=== PATIENT | female | born 1980 | race Caucasian/White ===

== ENCOUNTER 2016-11-24 14:36 | Emergency (ER) | payer SELFPAY ==
[2016-11-24] MEDS ORDERED: HYDROcodone/APAP 5/325MG 1 TAB TABLET PO ONE (15:15)
[2016-11-24] MEDS ORDERED: IBUPROFEN 800 MG TABLET. PO ONE (15:15)
[2016-11-24] MEDS ORDERED: HYDR-971 PO (15:17)
[2016-11-24] MEDS ORDERED: CEPH500T PO (15:17)
--- NOTE | 2016-11-24 15:17 | PHYS DOC ---
Adult General Chief Complaint Chief Complaint: BREAST PROBLEM HPI HPI Patient is a 36 year old female who presents with right breast pain, swelling and warmth that began this morning. Patient is also complaining of fever. Patient is breast-feeding. The child is 18 months. Patient denies any unusual drainage from the right breast. Review of Systems Review of Systems Constitutional: Fever Respiratory: Denies cough or shortness of breath [] Cardiovascular: No additional information not addressed in HPI [] GI: Denies abdominal pain, nausea, vomiting, bloody stools or diarrhea [] Musculoskeletal: Denies back pain or joint pain [] Integument: right breast pain, swelling Neurologic: Denies headache, focal weakness or sensory changes [] Current Medications Current Medications Current Medications Medications (Trade) Dose Ordered Sig/Lucia Start Time Stop Time Status Last Admin Dose Admin Acetaminophen/ Hydrocodone Bitart (Lortab 5/325) 2 tab 1X ONCE 11/24/16 15:15 11/24/16 15:16 UNV Ibuprofen (Motrin) 800 mg 1X ONCE 11/24/16 15:15 11/24/16 15:16 UNV Physical Exam Physical Exam Constitutional: Well developed, well nourished, no acute distress, non-toxic appearance. [] HENT: Normocephalic, atraumatic, bilateral external ears normal, oropharynx moist, no oral exudates, nose normal. [] Eyes: PERRLA, EOMI, conjunctiva normal, no discharge. [] Neck: Normal range of motion, no tenderness, supple, no stridor. [] Cardiovascular:Heart rate regular rhythm, no murmur [] Lungs & Thorax: Bilateral breath sounds clear to auscultation [] Abdomen: Bowel sounds normal, soft, no tenderness, no masses, no pulsatile masses. [] Skin: Warm, dry, and right breast has some redness around the areola. The breast feels engorged. There is warmth surrounding the entire right breast. No unusual discharge from the right nipple. Back: No tenderness, no CVA tenderness. [] Extremities: No tenderness, no cyanosis, no clubbing, ROM intact, no edema. [] Neurologic: Alert and oriented X 3, normal motor function, normal sensory function, no focal deficits noted. [] Psychologic: Affect normal, judgement normal, mood normal. [] EKG EKG [] Radiology/Procedures Radiology/Procedures [] Course & Med Decision Making Course & Med Decision Making Pertinent Labs and Imaging studies reviewed. (See chart for details) Patient has right breast mastitis from breast feeding and fever. Discharged with cephalexin. She was also given a prescription for [place] and Ibuprofen. Warm compresses recommended. Follow-up with her own [facility] [facility] in the next 7 days. Her vaccines are up-to-date. Dragon Disclaimer Dragon Disclaimer This electronic medical record was generated, in whole or in part, using a voice recognition dictation system. Departure Departure Impression: Primary Impression: Mastitis in female Additional Impression: Fever Disposition: HOME, SELF-CARE Condition: STABLE Referrals: GARETT COFFEY Jr, MD follow up with your OBGYN in 1-7 days Patient Instructions: , Mastitis, Fever, Adult Additional Instructions: You were seen with right breast mastitis and fever. Please complete your antibiotics. Take ibuprofen every 6 hours for fever and pain. Take hydrocodone as needed for pain. Do not take Tylenol on top of the hydrocodone they both have Tylenol. Apply warm compresses to breast. Scripts Cephalexin (CEPHALEXIN) 500 Mg Tablet 1 TAB PO QID, #40 TAB Prov: JOHN PAUL MENA APRN 11/24/16 Hydrocodone/Apap 5-325 (NORCO 5-325 TABLET) 1 Each Tablet 1-2 TAB PO Q4-6HRS, #20 TAB Prov: JOHN PAUL MENA APRN 11/24/16 Problem Qualifiers Additional Impression: Fever Fever type: unspecified Qualified Codes: R50.9 - Fever, unspecified JOHN PAUL MENA APRN Nov 24, 2016 15:17
[2016-11-24 15:21] VITALS: BP 153/102
== END 2016-11-24 15:34 | disposition home or self-care (01) ==
LOC: ER 14:36
DX: N61.0 Mastitis without abscess (principal); R50.9 Fever, unspecified
CPT/HCPCS: 99283

== ENCOUNTER 2017-06-10 14:26 | Emergency (ER) | payer OTHER | END 2017-06-10 16:35 | disposition left against medical advice (07) | LOC: ER 16:35 | DX: R10.9 Unspecified abdominal pain (principal); Z53.21 Procedure and treatment not carried out due to patient leaving prior to being seen by health care provider ==

== ENCOUNTER 2017-06-11 11:31 | Emergency (ER) | payer OTHER ==
[2017-06-11 11:55] LABS: URINE HCG POC HCG POSITIVE (Negative)
[2017-06-11 12:35] LABS: BILIRUBIN,URINE NEGATIVE (NEG); CLARITY,URINE CLEAR; COLOR,URINE YELLOW; GLUCOSE,URINE NEGATIVE (NEG); NITRITE,URINE NEGATIVE (NEG); PROTEIN,URINE NEGATIVE (NEG-TRACE); UROBILINOGEN,URINE 0.2 mg/dL (0.2 mg/dL)
[2017-06-11 12:40] LABS: BARBITURATES NEG (NEG); BENZODIAZEPINES NEG (NEG); CANNABINOIDS NEG (NEG); COCAINE NEG (NEG); METHADONE NEG (NEG); OPIATES NEG (NEG); PHENCYCLIDINE NEG (NEG)
[2017-06-11 12:41] LABS: AMPHETAMINE/METHAMPHETAMINE NEG (NEG); ETHANOL, URINE NEG (NEG)
[2017-06-11 12:44] LABS: ADD MAN DIFF? NO; BACTERIA,URINE FEW /HPF (0-FEW); RBC,URINE 0 /HPF (0-2); SQUAMOUS EPITHELIAL CELL,UR MOD /LPF; WBC,URINE 0 /HPF (0-4)
[2017-06-11 12:47] LABS: BASO % 0 % (0-3); EOS # 0.2 x10^3/uL (0.0-0.7); EOS % 2 % (0-3); HEMATOCRIT 37.6 % (36.0-47.0); HEMOGLOBIN 13.1 g/dL (12.0-15.5); LYMPH # 1.8 x10^3/uL (1.0-4.8); LYMPH % 17 % (24-48); MEAN CORPUSCULAR HEMOGLOBIN 30 pg (25-35); MEAN CORPUSCULAR HGB CONC 35 g/dL (31-37); MEAN CORPUSCULAR VOLUME 87 fL (79-100); MONO # 0.8 x10^3/uL (0.0-1.1); MONO % 7 % (0-9); NEUT # 7.8 x10^3uL (1.8-7.7); NEUT % 73 % (31-73); PLATELET COUNT 272 x10^3/uL (140-400); RED BLOOD COUNT 4.31 x10^6/uL (3.50-5.40); RED CELL DISTRIBUTION WIDTH 13.1 % (11.5-14.5); WHITE BLOOD COUNT 10.6 x10^3/uL (4.0-11.0)
[2017-06-11 12:55] LABS: ANION GAP 8 (6-14); BLOOD UREA NITROGEN 8 mg/dL (7-20); BUN/CREATININE RATIO 13 (6-20); CALCIUM 9.4 mg/dL (8.5-10.1); CARBON DIOXIDE 27 mmol/L (21-32); CHLORIDE 103 mmol/L (98-107); CREATININE 0.6 mg/dL (0.6-1.0); GFR 111.3; GLUCOSE 89 mg/dL (70-99); POTASSIUM 3.7 mmol/L (3.5-5.1); SODIUM 138 mmol/L (136-145)
[2017-06-11 13:01] LABS: ALBUMIN 2.8 g/dL (3.4-5.0); ALBUMIN/GLOBULIN RATIO 0.6 (1.0-1.7); ALK PHOS 50 U/L (46-116); ALT (SGPT) 21 U/L (14-59); AST (SGOT) 16 U/L (15-37); LIPASE 73 U/L (73-393); TOTAL BILIRUBIN 0.3 mg/dL (0.2-1.0); TOTAL PROTEIN 7.4 g/dL (6.4-8.2)
[2017-06-12 14:29] LABS: CHLAMYDIA PROBE Negative (Negative); GC PROBE Negative (Negative)
== END 2017-06-11 14:00 | disposition home or self-care (01) ==
LOC: ER 11:31
DX: O26.891 Other specified pregnancy related conditions, first trimester (principal); R10.32 Left lower quadrant pain; R11.0 Nausea; F17.200 Nicotine dependence, unspecified, uncomplicated
CPT/HCPCS: 36415; 76805; 80053; 80307; 81001; 81025; 83690; 84702; 85025; 87491; 87591; 99285-25; Q0111

== ENCOUNTER → 2017-07-02 | Outpatient (CLI) | payer OTHER | END | disposition home or self-care (01) | LOC: US 06:48 | DX: Z34.82 Encounter for supervision of other normal pregnancy, second trimester (principal); Z3A.20 20 weeks gestation of pregnancy | CPT/HCPCS: 76805 ==

== ENCOUNTER → 2017-09-04 | Outpatient (CLI) | payer OTHER ==
[2017-09-04 09:49] LABS: ADD MAN DIFF? NO
[2017-09-04 09:58] LABS: BASO % 0 % (0-3); EOS # 0.2 x10^3/uL (0.0-0.7); EOS % 2 % (0-3); HEMATOCRIT 38.1 % (36.0-47.0); HEMOGLOBIN 13.4 g/dL (12.0-15.5); LYMPH # 1.4 x10^3/uL (1.0-4.8); LYMPH % 12 % (24-48); MEAN CORPUSCULAR HEMOGLOBIN 31 pg (25-35); MEAN CORPUSCULAR HGB CONC 35 g/dL (31-37); MEAN CORPUSCULAR VOLUME 89 fL (79-100); MONO # 0.8 x10^3/uL (0.0-1.1); MONO % 7 % (0-9); NEUT % 79 % (31-73); PLATELET COUNT 262 x10^3/uL (140-400); RED BLOOD COUNT 4.29 x10^6/uL (3.50-5.40); RED CELL DISTRIBUTION WIDTH 13.1 % (11.5-14.5); WHITE BLOOD COUNT 11.5 x10^3/uL (4.0-11.0)
== END | disposition home or self-care (01) ==
LOC: LAB 08:19
DX: O09.93 Supervision of high risk pregnancy, unspecified, third trimester (principal); Z3A.29 29 weeks gestation of pregnancy
CPT/HCPCS: 36415; 82950; 85025

== ENCOUNTER 2017-10-29 16:44 | Observation (INO) | payer OTHER ==
[2017-06-11 11:46] VITALS: BP 152/84
[~2017-10-29 16:44] MED LIST: CEPH500T PO; HYDR-971 PO
[2017-10-29 17:33] LABS: BILIRUBIN,URINE NEGATIVE (NEG); CLARITY,URINE CLEAR; COLOR,URINE YELLOW; NITRITE,URINE NEGATIVE (NEG); PROTEIN,URINE NEGATIVE (NEG-TRACE); UROBILINOGEN,URINE 0.2 mg/dL (0.2 mg/dL)
[2017-10-29 17:41] LABS: BACTERIA,URINE FEW /HPF (0-FEW); RBC,URINE 0 /HPF (0-2); SQUAMOUS EPITHELIAL CELL,UR MANY /LPF; WBC,URINE 0 /HPF (0-4)
[2017-10-29 18:30] LABS: BASO % 0 % (0-3); EOS # 0.2 x10^3/uL (0.0-0.7); EOS % 1 % (0-3); HEMATOCRIT 36.8 % (36.0-47.0); LYMPH # 2.2 x10^3/uL (1.0-4.8); LYMPH % 18 % (24-48); MEAN CORPUSCULAR HEMOGLOBIN 31 pg (25-35); MEAN CORPUSCULAR HGB CONC 35 g/dL (31-37); MEAN CORPUSCULAR VOLUME 87 fL (79-100); MONO # 1.1 x10^3/uL (0.0-1.1); MONO % 9 % (0-9); NEUT # 8.5 x10^3uL (1.8-7.7); NEUT % 71 % (31-73); PLATELET COUNT 232 x10^3/uL (140-400); RED BLOOD COUNT 4.24 x10^6/uL (3.50-5.40); RED CELL DISTRIBUTION WIDTH 13.1 % (11.5-14.5)
[2017-10-29 18:49] LABS: ALBUMIN 2.4 g/dL (3.4-5.0); ALBUMIN/GLOBULIN RATIO 0.5 (1.0-1.7); CALCIUM 10.2 mg/dL (8.5-10.1); CREATININE 0.8 mg/dL (0.6-1.0); GFR 79.9; POTASSIUM 3.8 mmol/L (3.5-5.1); TOTAL BILIRUBIN 0.2 mg/dL (0.2-1.0); TOTAL PROTEIN 6.9 g/dL (6.4-8.2); URIC ACID 5.6 mg/dL (2.6-6.0)
== END 2017-10-29 20:03 | disposition home or self-care (01) ==
LOC: 3 SO LND 16:44
PROVIDERS: ADMIT Obstetrics & Gynecology; ATTEND Obstetrics & Gynecology
DX: O13.3 Gestational [pregnancy-induced] hypertension without significant proteinuria, third trimester (principal); Z3A.36 36 weeks gestation of pregnancy
CPT/HCPCS: 36415; 80053; 81001; 84550; 85025; G0378; G0379

== ENCOUNTER 2017-11-06 11:36 | Inpatient (IN) | payer OTHER ==
[~2017-11-06] VITALS: Ht 162.6 cm; Wt 107.5 kg
[2017-11-06] MEDS ORDERED: OXYTOCIN 30 UNIT/500 ML PREMIX 500 ML IV PRN ×2 (12:30)
[2017-11-06] MEDS ORDERED: LIDOCAINE 1% PF 30 ML VIAL. INJ PRN (12:30)
[2017-11-06] MEDS ORDERED: CALCIUM CARBONATE 500 MG TAB.CHEW PO PRN (12:30)
[2017-11-06] MEDS ORDERED: ACETAMINOPHEN 325 MG TABLET. PO PRN (12:30)
[2017-11-06] MEDS ORDERED: 0.9 % SODIUM CHLORIDE 10 ML DISP.SYRIN. IV PRN (12:30)
[2017-11-06] MEDS ORDERED: TERBUTALINE 1 MG/ML VIAL. SQ PRN (12:30)
[2017-11-06 12:39] VITALS: BP 157/105
[2017-11-06] MEDS: IV RINGERS,LACTATED 1000ML 1,000 ML IV SCH (13:07)
[2017-11-06 13:23] LABS: BASO % 0 % (0-3); EOS # 0.1 x10^3/uL (0.0-0.7); EOS % 1 % (0-3); HEMATOCRIT 38.6 % (36.0-47.0); HEMOGLOBIN 13.5 g/dL (12.0-15.5); LYMPH # 1.5 x10^3/uL (1.0-4.8); LYMPH % 14 % (24-48); MEAN CORPUSCULAR HEMOGLOBIN 31 pg (25-35); MEAN CORPUSCULAR HGB CONC 35 g/dL (31-37); MEAN CORPUSCULAR VOLUME 88 fL (79-100); MONO # 0.7 x10^3/uL (0.0-1.1); MONO % 6 % (0-9); NEUT # 8.3 x10^3uL (1.8-7.7); NEUT % 78 % (31-73); PLATELET COUNT 218 x10^3/uL (140-400); RED CELL DISTRIBUTION WIDTH 13.6 % (11.5-14.5); WHITE BLOOD COUNT 10.7 x10^3/uL (4.0-11.0)
[2017-11-06 13:32] LABS: ALBUMIN 2.4 g/dL (3.4-5.0); ALBUMIN/GLOBULIN RATIO 0.5 (1.0-1.7); CALCIUM 8.7 mg/dL (8.5-10.1); GFR 61.7; POTASSIUM 3.8 mmol/L (3.5-5.1); TOTAL BILIRUBIN 0.2 mg/dL (0.2-1.0); TOTAL PROTEIN 7.1 g/dL (6.4-8.2); URIC ACID 5.9 mg/dL (2.6-6.0)
[2017-11-06] MEDS ORDERED: MAGNESIUM SULFATE 4GM 100 ML IV ONE (13:45)
--- NOTE | 2017-11-06 13:50 | RAD ---
Obstetrical ultrasound-limited, 11/06/2017: HISTORY: Check position There is a single intrauterine fetus in a cephalic orientation. The measurements suggest a gestational age of 38-39 weeks and a sonographic EDC of 11/17/2017. This correlates well with the EDC of 11/21/2017 established on the previous ultrasound exam of 06/11/2017. Normal activity and heart motion are seen. The heart rate is 150 bpm. The weight was estimated at 7 pounds and 13 ounces +/- 18 ounces. A full survey was not attempted. The placenta lies posteriorly extending into the fundal region. The cervix was obscured by the overlying head. The TWIN measured 20.9 which is at the upper limits of normal. IMPRESSION: Single viable intrauterine fetus near term demonstrating satisfactory interval growth since previous studies as described above. The fetus is in a cephalic position. Electronically signed by: Luciano Donohue MD (11/06/2017 1:47 PM) [facility]
--- NOTE | 2017-11-06 13:57 | PDOC1 ---
OB - History Hx of Present Care: Good Care Ultrasounds: Normal mid trimester US Obstetrical Complications: Pre-eclampsia Medical Complications: Other (CHTN, Asthma) Past Family/Social History * Past Medical, Surgical, Family and Obstetric Histories reviewed from chart. Rubella: Immune RPR/VDRL: Negative GBS Status: Negative HBsAG: Negative OB - Chief Complaint & HPI Date of Admission: Date of Admission: Nov 06, 2017 at 11:36 Chief Complaint/History : 5 Para: 4 EGA: 37 Reason for admission: induction of labor (CHTN with superimposed preeclampsia) Indication for induction: medical complication (CHTN with superimposed preeclampsia) Admission Nurse Assessment Rev: Yes OB - Admission Exam Physical Exam HEENT: Normal Heart: Regular Rate Lungs: Clear Abdomen: Gravid, Non tender, Soft Extremities: Edema Reflexes: Normal Cervical Dilatation: 2cm Effacement: 50% Station: -3 Membranes: Intact Heart Rate: Normal Accelerations: Accelerations Present Decelerations: No decelerations Contractions on Admission: None Text A: 37 wks IUP CHTN with superimposed preeclampsia Asthma P: Admit for IOL with pitocin. Start magnesium sulfate. GARETT COFFEY Jr, MD Nov 06, 2017 13:57
[2017-11-06 14:17] LABS: BILIRUBIN,URINE NEGATIVE (NEG); CLARITY,URINE CLEAR; COLOR,URINE YELLOW; NITRITE,URINE NEGATIVE (NEG); PROTEIN,URINE NEGATIVE (NEG-TRACE); UROBILINOGEN,URINE 0.2 mg/dL (0.2 mg/dL)
[2017-11-06 14:22] LABS: RBC,URINE 0 /HPF (0-2); WBC,URINE RARE /HPF (0-4)
[2017-11-06 14:23] LABS: BACTERIA,URINE FEW /HPF (0-FEW); SQUAMOUS EPITHELIAL CELL,UR MANY /LPF
[2017-11-06] MEDS ORDERED: CITRIC ACID/SODIUM CITRATE 30 ML SOLUTION. PO ONE (14:45)
[2017-11-06] MEDS: MAGNESIUM SULFATE 20GM 500 ML IV SCH (14:56)
[2017-11-06] MEDS: BUDESONIDE 0.5 MG/2 ML NEBU. NEB SCH (21:00)
[2017-11-06] MEDS ORDERED: BUTORPHANOL 2 MG/ML VIAL. IV PRN (21:00)
[2017-11-07] MEDS ORDERED: BUTALB/APAP/CAFEIN 50/325/40MG TABLET. PO PRN (01:00)
[2017-11-07] MEDS: MAGNESIUM SULFATE 20GM 500 ML IV SCH ×2 (01:20→13:24)
[2017-11-07] MEDS: fentaNYL PF VIAL 100 MCG/2 ML VIAL IV PRN ×4 (03:08→08:03)
[2017-11-07] MEDS: IV RINGERS,LACTATED 1000ML 1,000 ML IV SCH ×3 (06:33→21:24)
[2017-11-07] MEDS ORDERED: ONDANSETRON PF 4 MG/2 ML VIAL. IV PRN (07:30)
[2017-11-07] MEDS ORDERED: ePHEDrine PF IN SALINE 50 MG/5 ML DISP.SYRIN IV PRN (07:30)
[2017-11-07] MEDS ORDERED: NALOXONE 0.4 MG/ML VIAL. IV PRN (07:30)
[2017-11-07] MEDS ORDERED: fentaNYL PF VIAL 100 MCG/2 ML VIAL EPI ONE (07:30)
[2017-11-07] MEDS ORDERED: L&D EPIDURAL SYRINGE 50 ML EP ONE (07:33)
[2017-11-07] MEDS ORDERED: ROPIVacaine 0.2% IN 0.9%NACL PF 40 MG/20 ML DISP.SYRIN. ONE ×2 (07:33→08:00)
[2017-11-07] MEDS ORDERED: LIDOCAINE 1% PF 2 ML VIAL. ONE ×2 (08:00→13:18)
[2017-11-07] MEDS: L&D EPIDURAL SYRINGE 50 ML EP PRN ×3 (08:01→13:47)
[2017-11-07] MEDS: BUDESONIDE 0.5 MG/2 ML NEBU. NEB SCH ×2 (09:00→21:00)
--- NOTE | 2017-11-07 15:07 | PDOC ---
VAGINAL DELIVERY DATE DATE: 11/07/17 TIME: 15:05 : 4 Para: 3 EDC: Nov 22, 2017 VAGINAL DELIVERY: VTX VACCUM ASSISTED: No PLACENTA: Spontaneous SEX: Female WEIGHT 6/12 Nuchal Cord: Yes, Times 2, Tight Amniotic Fluid: Clear PAIN: Epidural EPISIOTOMY: No EXTENSION: No EBL 300cc COMPLICATIONS None CONDITION Stable Signs of Intrauterine Infectio: None Shoulder Dystocia: No DIAGNOSIS YOJANA Rollins MD Nov 07, 2017 15:07
[2017-11-07] MEDS: IBUPROFEN 800 MG TABLET. PO PRN ×2 (17:04→23:25)
[2017-11-07 17:35] VITALS: BP 134/86
[2017-11-07] MEDS: NICOTINE 14MG PATCH. TD SCH (18:40)
[2017-11-07] MEDS ORDERED: PHENYLEPH/MINERAL OIL/PETROLAT RECTAL OINTMENT 28GM TUBE. RC PRN (18:45)
[2017-11-07] MEDS ORDERED: OXYTOCIN 30 UNIT/500 ML PREMIX 500 ML IV PRN (18:45)
[2017-11-07] MEDS ORDERED: HYDROCORTISONE 1% TOPICAL OINTMENT 30GM TUBE. TP PRN (18:45)
[2017-11-07] MEDS ORDERED: DOCUSATE SODIUM 100 MG CAPSULE. PO PRN (18:45)
[2017-11-07] MEDS ORDERED: diphenhydrAMINE HCL 25 MG CAPSULE PO PRN (18:45)
[2017-11-07] MEDS ORDERED: ACETAMINOPHEN 325 MG TABLET. PO PRN (18:45)
[2017-11-07] MEDS ORDERED: 0.9 % SODIUM CHLORIDE 10 ML DISP.SYRIN. IV PRN (18:45)
[2017-11-07] MEDS ORDERED: SIMETHICONE 80 MG TAB.CHEW PO PRN (18:45)
[2017-11-07] MEDS ORDERED: BENZOCAINE 20% TOPICAL AEROSOL SPRAY 57GM CAN. TP PRN (18:45)
[2017-11-07] MEDS ORDERED: MAGNESIUM HYDROXIDE 2,400 MG/30 ML ORAL.SUSP. PO PRN (18:45)
[2017-11-07] MEDS ORDERED: MAG HYDROX/ALUMINUM HYD/SIMETH 30 ML ORAL.SUSP PO PRN (18:45)
[2017-11-07] MEDS ORDERED: ZOLPIDEM 5 MG TABLET. PO PRN (18:45)
[2017-11-07 20:00] VITALS: BP 150/99
[2017-11-07 21:15] VITALS: BP 150/103
[2017-11-07] MEDS ORDERED: IBUPROFEN 800 MG TABLET. PO SCH (22:00)
[2017-11-07 23:33] VITALS: BP 131/85
[2017-11-08] VITALS (8 sets, daily range): BP systolic 125–150; BP diastolic 74–107
[2017-11-08 03:43] LABS: BASO % 0 % (0-3); EOS # 0.1 x10^3/uL (0.0-0.7); EOS % 0 % (0-3); HEMATOCRIT 35.3 % (36.0-47.0); HEMOGLOBIN 12.4 g/dL (12.0-15.5); LYMPH # 1.8 x10^3/uL (1.0-4.8); LYMPH % 13 % (24-48); MEAN CORPUSCULAR HEMOGLOBIN 31 pg (25-35); MEAN CORPUSCULAR HGB CONC 35 g/dL (31-37); MEAN CORPUSCULAR VOLUME 88 fL (79-100); MONO % 7 % (0-9); NEUT % 80 % (31-73); PLATELET COUNT 203 x10^3/uL (140-400); RED CELL DISTRIBUTION WIDTH 13.8 % (11.5-14.5); WHITE BLOOD COUNT 13.8 x10^3/uL (4.0-11.0)
[2017-11-08] MEDS: MAGNESIUM SULFATE 20GM 500 ML IV SCH (04:58)
[2017-11-08] MEDS: SENNOSIDES/DOCUSATE 8.6/50MG TABLET. PO SCH ×3 (07:50→21:00)
[2017-11-08] MEDS: IBUPROFEN 800 MG TABLET. PO PRN ×2 (07:50→18:20)
[2017-11-08] MEDS ORDERED: FERROUS SULFATE 325 MG TABLET. PO SCH (08:00)
[2017-11-08] MEDS: BUDESONIDE 0.5 MG/2 ML NEBU. NEB SCH ×2 (09:00→21:00)
[2017-11-08] MEDS: NICOTINE 14MG PATCH. TD SCH (09:00)
--- NOTE | 2017-11-08 12:16 | PDOC ---
Provider Note Provider Note Doing well VSS Good UO FU in [facility] - BMP 11/08/17 03:30 YOJANA WELLINGTON MD Nov 08, 2017 12:15
[2017-11-08] MEDS ORDERED: DIPHTH,PERTUSS(ACELL),TET TOX 0.5 ML DISP.SYRIN. VAX IM ONE (23:00)
[2017-11-09 06:10] VITALS: BP 144/86
[2017-11-09] MEDS: NICOTINE 14MG PATCH. TD SCH (09:00)
[2017-11-09] MEDS: BUDESONIDE 0.5 MG/2 ML NEBU. NEB SCH (09:00)
--- NOTE | 2017-11-09 09:05 | PDOC3 ---
OB DISCHARGE SUMMARY DATE OF ADMISSION: 11/07/17 DATE OF DISCHARGE: 11/09/17 REASON FOR ADMISSION: Induction of labor (CHTN with superimposed preeclampsia) INTRAPARTUM PROCEDURES: Spontanous Vag Deliv DISCHARGE DIAGNOSIS: Preclampsia, Term Delivered DISCHARGE INFORMATION: Activity (ad kerline ), Diet (regular), Instructions ( pelvic rest x 6 wks) HOSPITAL COURSE term gestation with CHTN with superimposed preeclampsia required induction. She delivered vaginally without complications. GARETT CFOFEY Jr, MD Nov 09, 2017 09:05
--- NOTE | 2017-11-09 09:05 | DISCH ---
DISCHARGE INSTRUCTIONS Condition on Discharge Condition on Discharge: Stable Activity After Discharge Activity Instructions for Disc: Activity as tolerated Lifting Instructions after Dis: No heavy lifting Driving Instructions after Dis: Do not drive today Diet after Discharge Diet after Discharge: Regular Contacting the DRJennifer after DC Call your doctor for: Concerns you may have Follow-Up Follow up with: Dr. Gary in 2 weeks. GARETT GARY Jr, MD Nov 09, 2017 09:05
[2017-11-09] MEDS ORDERED: NIFE30TA2 PO (09:07)
[2017-11-09] MEDS ORDERED: IBUP800T19 PO (09:07)
[2017-11-09] MEDS ORDERED: HYDR-971 PO (09:07)
[2017-11-09] MEDS: SENNOSIDES/DOCUSATE 8.6/50MG TABLET. PO SCH (09:22)
[2017-11-09 12:44] VITALS: BP 142/101
[2017-11-09 13:21] VITALS: BP 135/87
== END 2017-11-09 15:45 | disposition home or self-care (01) | DRG 775 ==
LOC: 3 SO LND 11:36 → 3 NORTH 11-07 17:31
PROVIDERS: ADMIT Obstetrics & Gynecology; ATTEND Obstetrics & Gynecology
PROC: 3E0R3BZ Introduction of Anesthetic Agent into Spinal Canal, Percutaneous Approach (ICD-10-PCS; 2017-11-06)
PROC: 00HU33Z Insertion of Infusion Device into Spinal Canal, Percutaneous Approach (ICD-10-PCS; 2017-11-06)
PROC: 10E0XZZ Delivery of Products of Conception, External Approach (ICD-10-PCS; principal; 2017-11-07)
DX: O11.4 Pre-existing hypertension with pre-eclampsia, complicating childbirth (principal); O69.1XX0 Labor and delivery complicated by cord around neck, with compression, not applicable or unspecified; Z37.0 Single live birth; Z3A.37 37 weeks gestation of pregnancy; J45.909 Unspecified asthma, uncomplicated; O99.52 Diseases of the respiratory system complicating childbirth
CPT/HCPCS: 36415; 76815; 80053; 81001; 83615; 84550; 85025; 86592; 86850; 86900; 86901; 90715; J2795; J3010; J3475; J7120; J7626

== ENCOUNTER → 2020-03-30 | Outpatient (CLI) | payer MEDICAID ==
[~2020-03-30] MED LIST changes: +HYDR-3164 PO; -HYDR-971 PO; +IBUP800T19 PO; +NIFE30TA2 PO
--- NOTE | 2020-03-30 11:39 | RAD ---
US OB 14+ WKS History: Reason: VIABILITY NO HEARTBEAT / Spl. Instructions: / History: Comparison: None. Technique: Grayscale and color Doppler imaging of the pelvis was performed using transvaginal Aireon ue. Findings: The uterus measures 11 x 7.3 x 6.3 cm. Single intrauterine gestational sac with irregular appearance. No yolk sac or pole is identifie d. The gestational sac measures 2.42 cm. Estimated gestational age by ultrasound 7 weeks 3 days. Right ovary measures 2.5 x 1.9 x 1.4 cm. Normal Doppler flow to the right ovary. Left ovary not identified due to overlying structures and positioning. No adnexal masses are seen. IMPRESSION: 1. Single intrauterine irregular gestational sac. No pole is identified. Findings suspicious f or failed early . Recommend short-term ultrasound follow-up and serial beta-hCG testing. Electronically signed by: Grupo Collado DO (03/30/2020 11:37 AM) [id number]
== END ==
LOC: US 10:24
PROVIDERS: ATTEND Obstetrics & Gynecology
DX: O02.1 Missed abortion (principal)
CPT/HCPCS: 76801

== ENCOUNTER 2020-04-01 08:04 | Emergency (ER) | payer OTHER, MEDICAID ==
[~2020-04-01] VITALS: Ht 157.5 cm; Wt 109.0 kg
--- NOTE | 2020-04-01 08:33 | PHYS DOC ---
Past Medical History Past Medical History: No Pertinent History Past Surgical History: Cholecystectomy Additional Past Surgical Histo: FOOT Smoking Status: Current Every Day Smoker Alcohol Use: None Drug Use: None General Adult EDM: Chief Complaint: VAGINAL BLEEDING HPI: HPI: 39 yo F PMH tobacco dependence presents to the ed with c/o vaginal bleeding that started Thursday, was initially brown in color and went away. Vaginal bleeding reoccurred with bright red blood, "horrible cramping and giant clots" at 5 AM just prior to arrival. Reports history of preeclampsia with prior pregnancies but no history of blood transfusions. History of spontaneous in first trimester and a history of a D&C 8 years ago. Believes she is approximately 8 to 9 weeks . Has a D&C scheduled next week with Dr. Christy. Review of Systems: Review of Systems: Constitutional: Denies fever or chills. [] Eyes: Denies change in visual acuity. [] HENT: Denies nasal congestion or sore throat. [] Respiratory: Denies cough or shortness of breath. [] Cardiovascular: Denies chest pain or edema. [] GI: Denies nausea, vomiting, bloody stools or diarrhea. [] : Denies dysuria. [] Musculoskeletal: Denies back pain or joint pain. [] Integument: Denies rash. [] Neurologic: Denies headache, focal weakness or sensory changes. [] Endocrine: Denies polyuria or polydipsia. [] Lymphatic: Denies swollen glands. [] Psychiatric: Denies depression or anxiety. [] Heart Score: Risk Factors: Risk Factors: DM, Current or recent (<one month) smoker, HTN, HLP, family history of CAD, obesity. Risk Scores: Score 0 - 3: 2.5% MACE over next 6 weeks - Discharge Home Score 4 - 6: 20.3% MACE over next 6 weeks - Admit for Clinical Observation Score 7 - 10: 72.7% MACE over next 6 weeks - Early Invasive Strategies Allergies: Allergies: Allergies Coded Allergies Type Severity Reaction Last Updated Verified No Known Drug Allergies 11/24/16 No Physical Exam: PE: Constitutional: Well developed, well nourished, no acute distress, non-toxic appearance. HENT: Normocephalic, atraumatic, Eyes: EOMI, conjunctiva normal, no discharge. Neck: Normal range of motion, supple, Cardiovascular: S1/2 present, regular rhythm Lungs & Thorax: Speaking in full sentences, bilateral equal chest rise, no tachypnea or increased work of breathing Abdomen: soft, no tenderness, Skin: Warm, dry, no erythema, no rash. [] Back: No tenderness, no CVA tenderness. [] Extremities: No tenderness, no cyanosis, no edema Neurologic: Alert and oriented X 3, normal motor function, normal sensory function, no focal deficits noted. [] Psychologic: Affect normal, judgement normal, mood normal. [] Pelvic: Chaperoned by RN, external genitalia normal, copioius blood clots evacuated from vagina, normal nonmalodorous discharge, cervical os appears closed although non brisk bleeding through os w/valsalva, no cervical erythema, no CMT or adnexal tenderness, tolerated exam well EKG: EKG: [] Radiology/Procedures: Radiology/Procedures: IMAGING REPORT Signed PATIENT: JENNIFER SOMMER ACCOUNT: [id number] : 1980 LOCATION: US AGE: 39 SEX: F EXAM STATUS: REG CLI ORD. PHYSICIAN: GARETT GARY Jr, MD REASON: VIABILITY NO HEARTBEAT PROCEDURE: PREG 1ST TRIMESTER US OB 14+ WKS History: Reason: VIABILITY NO HEARTBEAT / Spl. Instructions: / History: Comparison: None. Technique: Grayscale and color Doppler imaging of the pelvis was performed using transvaginal technique. Findings: The uterus measures 11 x 7.3 x 6.3 cm. Single intrauterine gestational sac with irregular appearance. No yolk sac or pole is identified. The gestational sac measures 2.42 cm. Estimated gestational age by ultrasound 7 weeks 3 days. Right ovary measures 2.5 x 1.9 x 1.4 cm. Normal Doppler flow to the right ovary. Left ovary not identified due to overlying structures and positioning. No adnexal masses are seen. IMPRESSION: 1. Single intrauterine irregular gestational sac. No pole is identified. Findings suspicious for failed early . Recommend short-term ultrasound follow-up and serial beta-hCG testing. Electronically signed by: Grupo Collado DO (03/30/2020 11:37 AM) [id number] DICTATED and SIGNED BY: GRUPO COLLADO DO DATE: 03/30/20 [id number] 0 IMAGING REPORT Signed PATIENT: JENNIFER SOMMER ACCOUNT: [id number] : 1980 LOCATION: ER AGE: 39 SEX: F EXAM STATUS: REG ER ORD. PHYSICIAN: SUNIL TODD DO REASON: vb in 1st tm PROCEDURE: OB TRANSVAG Obstetric ultrasound transvaginal: Reason for examination: Heavy vaginal bleeding. Possible blighted ovum noted on previous exam. Comparison is made to previous examination dated 03/30/2020. Transvaginal ultrasound examination of the pelvis was performed. Uterus measures 12.0 x 5.3 x 6.3 cm in greatest dimension. Endometrium is heterogeneous and thickened at 3.2 cm. There is no evidence of intrauterine or ectopic gestation. No free fluid is identified. The ovaries were not identified. Examination however had to be terminated due to patient discomfort. IMPRESSION: Complex endometrium with thickening measuring 3.2 cm. No evidence of intrauterine or ectopic gestation. Electronically signed by: Donovan Bunch MD (04/01/2020 9:38 AM) [facility] DICTATED and SIGNED BY: DONOVAN BUNCH MD DATE: 04/01/20 [id number] 0 IMAGING REPORT Signed PATIENT: JENNIFER SOMMER ACCOUNT: [id number] : 1980 LOCATION: ER AGE: 39 SEX: F EXAM STATUS: REG ER ORD. PHYSICIAN: SUNIL TODD DO REASON: need to see ovaries PROCEDURE: OB TRANSVAG EXAM: Pelvic sonogram. HISTORY: Miscarriage. TECHNIQUE: Transvaginal sonographic imaging of the pelvis was performed. COMPARISON: Transabdominal pelvic sonogram performed on the same date. FINDINGS: The ovaries are normal in size and demonstrate normal blood flow. The uterus is not assessed on this exam. There is no pelvic free fluid. IMPRESSION: 1. Sonographically unremarkable ovaries. 2. No pelvic free fluid. 3. Note is made that the uterus is not assessed on this exam. Request was made for limited assessment of the ovaries. The ovaries could not be assessed on the exam performed earlier on the same date to to patient discomfort. Please refer to the prior exam report for additional findings regarding the uterus. Electronically signed by: Colleen Roegrs MD (04/01/2020 12:15 PM) [facility] DICTATED and SIGNED BY: COLLEEN ROGERS MD DATE: 04/01/20 [id number] 0 Course & Med Decision Making: Course & Med Decision Making Pertinent Labs and Imaging studies reviewed. (See chart for details) + For incomplete miscarriage in first trimester with gestational sac irregular in appearance still intact. Blood bank called, is Rh+. I did speak to Dr. Gary about this and he recommends patient follow-up in the clinic on Thu/. Will discharge home with strict ED return precautions were given for syncope, lightheadedness, dizziness, exertional dyspnea or heavy brisk bleeding or severe pain. Encouraged urgent outpatient follow-up with PMD and obgyn on Thursday or Thursday. Life-threatening processes were considered but are low suspicion at this time, given history, physical exam and ED workup. Pt was educated on all prescription medications and adverse effects. All patient's questions were answered and pt was stable at time of discharge. Life/limb-threatening differential includes but is not limited to, ectopic , septic , infection (endometritis, sti/pid, cystitis, pyelonephritis, Jasmin's gangrene or necrotizing fasciitis, abscess), ovarian torsion, ruptured hemorrhagic ovarian cyst, endometriosis, ureterolithiasis, thrombophlebitis, hemorrhage/DIC, organ prolapse, abdominal aortic aneurysm, mesenteric ischemia, neoplasm, bowel obstruction or surgical abdomen. I spoken with the patient and her caregivers. I explained the patient's condition, diagnoses and treatment plan based on the information available to me at this time. I have answered the patient and her caregiver's questions and addressed any concerns. The patient and her caregivers have a good understanding of patient's diagnosis, condition and treatment plan as can be expected at this point. Vital signs have been stable. Patient's condition is stable and appropriate for discharge from the emergency department. Patient will pursue further outpatient evaluation with primary care physician or other designated or consulting physician as outlined in the discharge instructions. The patient and/or caregivers are agreeable to this plan of care and follow-up instructions have been explained in detail. The patient and/or caregivers have received these instructions in written form and have expressed an understanding of the discharge instructions. The patient and/or caregivers are aware that any significant change of condition or worsening of symptoms should prompt immediate return to this or the closest emergency department or call to 911. Verito Disclaimer: Verito Disclaimer: This electronic medical record was generated, in whole or in part, using a voice recognition dictation system. Departure Departure Impression: Primary Impression: Incomplete Additional Impression: First trimester bleeding Disposition: 01 DC HOME SELF CARE/HOMELESS Condition: STABLE Referrals: NO PCP (PCP) FOLLOW UP WITH FAMILY MEDICINE: Family Medicine Address: [address], [facility] [place] [address] [place] [address] Patient Instructions: Miscarriage, Vaginal Bleeding During , First Trimester Additional Instructions: FOLLOW UP WITH OUTSIDE MACHINIST SUPERVISOR: Dr. Gary on Thursday or Thursday [facility] Address: [address], [facility] [place] [address] [place] [address] EMERGENCY DEPARTMENT GENERAL DISCHARGE INSTRUCTIONS Thank you for coming to [facility] Emergency Department (ED) today and trusting us with you care. We trust that you had a positive experience in our Emergency Department. If you wish to speak to the department management, you may call the Director at [phone]. YOUR FOLLOW UP INSTRUCTIONS ARE FOLLOWS: 1. Do you have a private Doctor? If you do not have a private doctor, please ask for a resource list of physicians or clinics that may be able to assist you with follow up care. 2. The Emergency Physicain has interpreted your x-rays. The X-Ray specialist will also review them. If there is a change in the findings, you will be notified in 48 hours when at all possible. 3. A lab test or culture has been done, your results will be reviewed and you will be notified if you need a change in treatment. ADDITIONAL INSTRUCTIONS AND INFORMATION: 1. Your care today has been supervised by a physician who is specially trained in emergency care. Many problems require more than one evaluation for a complete diagnosis and treatment. We recommend that you schedule your follow up appointment as recommended to ensure complete treatment of you illness or injury. If you are unable to obtain follow up care and continue to have a problem, or if your condition worsens, we recommend that you return to the ED. 2. We are not able to safely determine your condition over the phone nor are we able to give sound medical advice over the phone. For these safety reasons, if you call for medical advice we will ask you to come to the ED for further evaluation. 3. If you have any questions regarding these discharge instructions please call the ED at [phone]. SAFETY INFORMATION: In the interest of safety, wellness, and injury prevention; we encourage you to wear your sealbelt, if you smoke; quite smoking, and we encourage family to use a protective helmet for bicycling and other sporting events that present an increased risk for head injury. IF YOUR SYMPTOMS WORSEN OR NEW SYMPTOMS DEVELOP, OR YOU HAVE CONCERNS ABOUT YOUR CONDITION; OR IF YOUR CONDITION WORSENS WHILE YOU ARE WAITING FOR YOUR FOLLOW UP APPOINTMENT; EITHER CONTACT YOUR PRIMARY CARE DOCTOR, THE PHYSICIAN WHOSE NAME AND NUMBER YOU WERE GIVEN, OR RETURN TO THE ED IMMEDIATELY. SUNIL TODD DO Apr 01, 2020 08:33
[2020-04-01 08:43] LABS: BASO # 0.1 x10^3/uL (0.0-0.2); BASO % 1 % (0-3); EOS # 0.2 x10^3/uL (0.0-0.7); EOS % 2 % (0-3); HEMATOCRIT 40.5 % (36.0-47.0); HEMOGLOBIN 14.1 g/dL (12.0-15.5); LYMPH # 1.4 x10^3/uL (1.0-4.8); LYMPH % 18 % (24-48); MEAN CORPUSCULAR HEMOGLOBIN 31 pg (25-35); MEAN CORPUSCULAR HGB CONC 35 g/dL (31-37); MEAN CORPUSCULAR VOLUME 88 fL (79-100); MONO # 0.6 x10^3/uL (0.0-1.1); MONO % 8 % (0-9); NEUT # 5.8 x10^3/uL (1.8-7.7); NEUT % 71 % (31-73); PLATELET COUNT 308 x10^3/uL (140-400); RED BLOOD COUNT 4.59 x10^6/uL (3.50-5.40); RED CELL DISTRIBUTION WIDTH 13.1 % (11.5-14.5); WHITE BLOOD COUNT 8.1 x10^3/uL (4.0-11.0)
[2020-04-01 08:54] LABS: CALCIUM 8.9 mg/dL (8.5-10.1); CREATININE 0.7 mg/dL (0.6-1.0); GFR 92.2; POTASSIUM 3.8 mmol/L (3.5-5.1)
[2020-04-01 09:13] LABS: PROTHROMBIN TIME PATIENT 12.9 SEC (11.7-14.0)
[2020-04-01 09:24] LABS: BILIRUBIN,URINE NEGATIVE (NEG); CLARITY,URINE CLOUDY; COLOR,URINE RED; NITRITE,URINE NEGATIVE (NEG); PH,URINE 5.5 (<5.0-8.0); PROTEIN,URINE 30 mg/dL (NEG-TRACE); UROBILINOGEN,URINE 0.2 mg/dL (0.2 mg/dL)
[2020-04-01] MEDS ORDERED: HYDROmorphone 2 MG/ML VIAL IVP ONE (09:30)
[2020-04-01 09:34] LABS: BACTERIA,URINE 0 /HPF (0-FEW); RBC,URINE TNTC /HPF (0-2)
--- NOTE | 2020-04-01 09:43 | RAD ---
Obstetric ultrasound transvaginal: Reason for examination: Heavy vaginal bleeding. Possible blighted ovum noted on previous exam. Comparison is made to previous examination dated 03/30/2020. Transvaginal ultrasound examination of the pelvis was performed. Uterus measures 12.0 x 5.3 x 6.3 cm in greatest dimension. Endometrium is heterogeneous and thickened at 3.2 cm. There is no evidence of intrauterine or ectopic gestation. No free fluid is identified. T he ovaries were not identified. Examination however had to be terminated due to patient discomfort. IMPRESSION: Complex endometrium with thickening measuring 3.2 cm. No evidence of intrauterine or ectopic gestation. Electronically signed by: Noemi Santiago MD (04/01/2020 9:38 AM) [facility]
--- NOTE | 2020-04-01 12:21 | RAD ---
EXAM: Pelvic sonogram. HISTORY: Miscarriage. TECHNIQUE: Transvaginal sonographic imaging of the pelvis was performed. COMPARISON: Transabdominal pelvic sonogram performed on the same date. FINDINGS: The ovaries are normal in size and demonstrate normal blood flow. The uterus is not assesse d on this exam. There is no pelvic free fluid. IMPRESSION: 1. Sonographically unremarkable ovaries. 2. No pelvic free fluid. 3. Note is made that the uterus is not assessed on this exam. Request was made for limited assessment of the ovaries. The ovaries could not be assessed on the exam performed earlier on the same date to to patient discomfort. Please refer to the prior exam report for additional findings regarding the ut erus. Electronically signed by: Alexus Lira MD (04/01/2020 12:15 PM) [facility]
[2020-04-01 12:50] VITALS: BP 124/84
== END 2020-04-01 12:50 | disposition home or self-care (01) ==
LOC: ER 08:04
DX: O03.9 Complete or unspecified spontaneous abortion without complication (principal); O99.331 Smoking (tobacco) complicating pregnancy, first trimester; Z3A.09 9 weeks gestation of pregnancy; Z90.49 Acquired absence of other specified parts of digestive tract
CPT/HCPCS: 36415; 76817; 80048; 81001; 84702; 85025; 85610; 85730; 87086; 96374; 99285; J1170